=== PATIENT | male | born 1965 | race Caucasian/White ===

== ENCOUNTER 2023-07-31 08:54 | Observation (INO) | payer OTHER ==
--- NOTE | 2023-07-31 10:10 | ERPHSYRPT ---
- History of Present Illness Time Seen by Provider: 07/31/23 09:20 Source: patient Exam Limitations: no limitations Patient Subjective Stated Complaint: Pt began getting dizzy last night at home and he has an elevated blood pressure Triage Nursing Assessment: Pt brought to the ER by a coworker, hypertensive, denies pain, states that he began getting dizzy last night for no apparent reason and it continues on to this morning, pulses normal, skin n/w/d, no difficulty breathing, denies chest pain, doesn't appear to be in any distress Physician History: 58-year-old male presents to our ED for evaluation of dizziness. Dizziness started last night at approximately 9 PM. Patient states he felt as though the room was spinning. Patient did not seek medical attention felt it was just resolved. Patient awoke this morning with a same symptoms. He reported to work then was brought to our ED for evaluation. Patient does not see a family doctor regularly. Patient denies pain. No nausea no vomiting. Symptoms are mild to moderate in intensity. No specific worsening or improving factors. Patient voices no other complaints or concerns at this time. Portions of this note were created with voice recognition technology. There may be grammatical, spelling, punctuation or sound alike errors Timing/Duration: yesterday Severity: moderate Modifying Factors: Improves With: nothing Associated Symptoms: denies symptoms Allergies/Adverse Reactions: No Known Drug Allergies Allergy (Verified 07/31/23 09:14) Home Medications: No Reportable Medications [No Reported Medications] 07/31/23 [History] Hx Influenza Vaccination/Date Given: No Hx Pneumococcal Vaccination/Date Given: No Travel Risk - International Travel Have you traveled outside of the country in past 3 weeks: No - Coronavirus Screening Are you exhibiting any of the following symptoms?: No Close contact with a COVID-19 positive Pt in past 14-21 Days: No - Vaccine Status Have you recieved a Covid-19 vaccination: No - Review of Systems Constitutional: No Symptoms, No Fever, No Chills Eyes: No Symptoms Ears, Nose, & Throat: No Symptoms Respiratory: No Symptoms, No Cough, No Dyspnea Cardiac: No Symptoms, No Chest Pain, No Edema, No Syncope Abdominal/Gastrointestinal: No Symptoms, No Abdominal Pain, No Nausea, No Vomiting, No Diarrhea Genitourinary Symptoms: No Symptoms, No Dysuria Musculoskeletal: No Symptoms, No Back Pain, No Neck Pain Skin: No Symptoms, No Rash Neurological: No Symptoms, No Dizziness, No Focal Weakness, No Sensory Changes Psychological: No Symptoms Endocrine: No Symptoms Hematologic/Lymphatic: No Symptoms Immunological/Allergic: No Symptoms All Other Systems: Reviewed and Negative - Past Medical History Pertinent Past Medical History: Yes Neurological History: Seizures - Past Surgical History Past Surgical History: Yes Gastrointestinal: Hernia Repair Other Surgical History: tubes in ears - Social History Smoking Status: Never smoker Exposure to second hand smoke: No Drug Use: none Patient Lives Alone: No - Nursing Vital Signs Nursing Vital Signs: Initial Vital Signs Temperature 97.9 F 07/31/23 09:03 Pulse Rate 67 07/31/23 09:03 Respiratory Rate 16 07/31/23 09:03 Blood Pressure 187/99 07/31/23 09:03 O2 Sat by Pulse Oximetry 99 07/31/23 09:03 Pain Scale Pain Intensity 0 - Physical Exam General Appearance: no apparent distress, alert Eye Exam: PERRL/EOMI, eyes nml inspection Ears, Nose, Throat Exam: normal ENT inspection, TMs normal, pharynx normal, moist mucous membranes Neck Exam: normal inspection, non-tender, supple, full range of motion Respiratory Exam: normal breath sounds, lungs clear, airway intact, No respiratory distress Cardiovascular Exam: regular rate/rhythm, normal heart sounds, normal peripheral pulses Gastrointestinal/Abdomen Exam: soft, normal bowel sounds, No tenderness, No mass Back Exam: normal inspection, normal range of motion, No CVA tenderness, No vertebral tenderness Extremity Exam: normal inspection, normal range of motion, pelvis stable Neurologic Exam: alert, oriented x 3, cooperative, normal mood/affect, nml cerebellar function, nml station & gait, sensation nml, No motor deficits Skin Exam: normal color, warm, dry, No rash Lymphatic Exam: No adenopathy SpO2 Interpretation: normal SpO2: 99 O2 Delivery: Room Air - Course Nursing assessment & vital signs reviewed: Yes EKG Interpreted by Me: RATE (61), Sinus Rhythm, NORMAL AXIS, NORMAL INTERVALS - CT Exams Head CT Interpretation: Tele-radiologist Report (Partial opacification of right mastoid. Possibly inflammatory.) Ordered Tests: Active Orders 24 hr Category Date Time Status Quilt Sewer STAT Care 07/31/23 09:47 Active EKG-ER Only STAT Care 07/31/23 09:46 Active IV Insertion STAT Care 07/31/23 09:46 Active Pulse Oximetry (ED) STAT Care 07/31/23 09:46 Active HEAD WITHOUT CONTRAST [CT] Stat Exams 07/31/23 09:48 Completed ACETAMINOPHEN Stat Lab 07/31/23 10:16 Completed CBC W DIFF Stat Lab 07/31/23 09:46 Completed CMP Stat Lab 07/31/23 10:16 Completed ETHYL ALCOHOL Stat Lab 07/31/23 10:16 Completed SALICYLATE Stat Lab 07/31/23 10:16 Completed TROPONIN Q4H Lab 07/31/23 10:16 Completed TROPONIN Q4H Lab 07/31/23 14:25 Completed TROPONIN Q4H Lab 07/31/23 18:00 Ordered UA W/RFX UR CULTURE Stat Lab 07/31/23 11:31 Completed Urine Triage Profile Stat Lab 07/31/23 11:31 Completed Transfer Order Routine Transfer 07/31/23 Ordered Medication Summary Discontinued Medications Generic Name Dose Route Start Last Admin Trade Name Freq PRN Reason Stop Dose Admin Aspirin 324 mg 07/31/23 15:05 07/31/23 15:08 Aspirin 81 Mg Tab.Chew PO 07/31/23 15:06 324 mg STAT ONE Administration Aspirin Confirm 07/31/23 15:07 Aspirin 81 Mg Tab.Chew Administered 07/31/23 15:08 Dose 324 mg .ROUTE .STK-MED ONE Piperacillin Sod/Tazobactam 100 mls @ 200 mls/hr 07/31/23 11:44 07/31/23 11:58 Sod 3.375 gm/ Sodium Chloride IV 07/31/23 12:13 200 mls/hr STAT ONE Administration Sodium Chloride Confirm 07/31/23 11:52 Sodium Chloride 0.9% Administered 07/31/23 11:53 Dose 100 mls @ ud .ROUTE .STK-MED ONE Piperacillin Sod/Tazobactam Sod Confirm 07/31/23 11:49 Piperacillin/Tazobactam Sodium 3.375 Gm Vial Administered 07/31/23 11:50 Dose 3.375 gm IV .STK-MED ONE Lab/Rad Data: Laboratory Result Diagrams 07/31/23 09:46 07/31/23 10:16 Laboratory Results 07/31/23 07/31/23 07/31/23 Range/Units 14:25 11:31 11:31 WBC (4.0-10.5) x10^3/uL RBC (4.1-5.6) x10^6/uL Hgb (12.5-18.0) g/dL Hct (42-50) % MCV (78-100) fL MCH (26-32) pg MCHC (32-36) g/dL RDW (11.5-14.0) % Plt Count (150-450) x10^3/uL MPV (7.5-11.0) fL Gran % (36.0-66.0) % Immature Gran % (Auto) (0.00-0.4) % Nucleat RBC Rel Count (0.00-0.1) % Eos # (Auto) (0-0.5) x10^3/uL Immature Gran # (Auto) (0.00-0.03) x10^3u/L Absolute Lymphs (auto) (1.0-4.6) x10^3/uL Absolute Monos (auto) (0.0-1.3) x10^3/uL Absolute Nucleated RBC (0.00-0.01) x10^3u/L Lymphocytes % (24.0-44.0) % Monocytes % (0.0-12.0) % Eosinophils % (0.00-5.0) % Basophils % (0.0-0.4) % Absolute Granulocytes (1.4-6.9) x10^3/uL Basophils # (0-0.4) x10^3/uL Sodium (135-145) mmol/L Potassium (3.5-5.1) mmol/L Chloride (98-107) mmol/L Carbon Dioxide (22-30) mmol/L Anion Gap (5-15) MEQ/L BUN (9-20) mg/dL Creatinine (0.66-1.25) mg/dL Estimated GFR ML/MIN Glucose (74-106) mg/dL Calcium (8.4-10.2) mg/dL Total Bilirubin (0.2-1.3) mg/dL AST (17-59) U/L ALT (0-50) U/L Alkaline Phosphatase (38-126) U/L Troponin I < 0.012 (0.000-0.034) ng/mL Serum Total Protein (6.3-8.2) g/dL Albumin (3.5-5.0) g/dL Urine Color Yellow (Yellow) Urine Appearance Clear (Clear) Urine pH 7.0 (4.6-8.0) Ur Specific [place] 1.010 (1.005-1.030) Urine Protein Negative (Negative) Urine Glucose (UA) Negative (Negative) mg/dL Urine Ketones Negative (Negative) Urine Blood Negative (Negative) Urine Nitrite Negative (Negative) Urine Bilirubin Negative (Negative) Urine Urobilinogen 0.2 (0.2) mg/dL Ur Leukocyte Esterase Negative (Negative) U Hyaline Cast (Auto) NONE SEEN (0-2) /LPF Urine Microscopic RBC 0-2 (0-5) /HPF Urine Microscopic WBC 0-2 (0-5) /HPF Ur Epithelial Cells None Seen (None Seen) /HPF Urine Bacteria None Seen (None Seen) /HPF Urine Culture Reflexed NO (NO) Salicylates (2-20) mg/dL Urine Opiates Level NEGATIVE (NEGATIVE) Ur Methadone NEGATIVE (NEGATIVE) Acetaminophen (10-30) ug/ml Urine Barbiturates NEGATIVE (NEGATIVE) Ur Phencyclidine (PCP) NEGATIVE (NEGATIVE) Urine Amphetamine NEGATIVE (NEGATIVE) U Benzodiazepine Level NEGATIVE (NEGATIVE) Urine Cocaine NEGATIVE (NEGATIVE) Urine Marijuana (THC) NEGATIVE (NEGATIVE) Ethyl Alcohol (0-10) mg/dL 07/31/23 07/31/23 07/31/23 Range/Units 10:16 10:16 09:46 WBC 7.3 (4.0-10.5) x10^3/uL RBC 4.78 (4.1-5.6) x10^6/uL Hgb 15.4 (12.5-18.0) g/dL Hct 44.8 (42-50) % MCV 93.7 (78-100) fL MCH 32.2 H (26-32) pg MCHC 34.4 (32-36) g/dL RDW 11.5 (11.5-14.0) % Plt Count 180 (150-450) x10^3/uL MPV 9.3 (7.5-11.0) fL Gran % 78.0 H (36.0-66.0) % Immature Gran % (Auto) 0.1 (0.00-0.4) % Nucleat RBC Rel Count 0.0 (0.00-0.1) % Eos # (Auto) 0.03 (0-0.5) x10^3/uL Immature Gran # (Auto) 0.01 (0.00-0.03) x10^3u/L Absolute Lymphs (auto) 1.31 (1.0-4.6) x10^3/uL Absolute Monos (auto) 0.24 (0.0-1.3) x10^3/uL Absolute Nucleated RBC 0.00 (0.00-0.01) x10^3u/L Lymphocytes % 17.9 L (24.0-44.0) % Monocytes % 3.3 (0.0-12.0) % Eosinophils % 0.4 (0.00-5.0) % Basophils % 0.3 (0.0-0.4) % Absolute Granulocytes 5.69 (1.4-6.9) x10^3/uL Basophils # 0.02 (0-0.4) x10^3/uL Sodium 134 L (135-145) mmol/L Potassium 3.8 (3.5-5.1) mmol/L Chloride 103 (98-107) mmol/L Carbon Dioxide 22 (22-30) mmol/L Anion Gap 12.7 (5-15) MEQ/L BUN 24 H (9-20) mg/dL Creatinine 0.79 (0.66-1.25) mg/dL Estimated GFR 101.7 ML/MIN Glucose 107 H (74-106) mg/dL Calcium 9.1 (8.4-10.2) mg/dL Total Bilirubin 0.80 (0.2-1.3) mg/dL AST 28 (17-59) U/L ALT 17 (0-50) U/L Alkaline Phosphatase 63 (38-126) U/L Troponin I < 0.012 (0.000-0.034) ng/mL Serum Total Protein 7.3 (6.3-8.2) g/dL Albumin 4.2 (3.5-5.0) g/dL Urine Color (Yellow) Urine Appearance (Clear) Urine pH (4.6-8.0) Ur Specific [place] (1.005-1.030) Urine Protein (Negative) Urine Glucose (UA) (Negative) mg/dL Urine Ketones (Negative) Urine Blood (Negative) Urine Nitrite (Negative) Urine Bilirubin (Negative) Urine Urobilinogen (0.2) mg/dL Ur Leukocyte Esterase (Negative) U Hyaline Cast (Auto) (0-2) /LPF Urine Microscopic RBC (0-5) /HPF Urine Microscopic WBC (0-5) /HPF Ur Epithelial Cells (None Seen) /HPF Urine Bacteria (None Seen) /HPF Urine Culture Reflexed (NO) Salicylates < 1.0 L (2-20) mg/dL Urine Opiates Level (NEGATIVE) Ur Methadone (NEGATIVE) Acetaminophen < 10 L (10-30) ug/ml Urine Barbiturates (NEGATIVE) Ur Phencyclidine (PCP) (NEGATIVE) Urine Amphetamine (NEGATIVE) U Benzodiazepine Level (NEGATIVE) Urine Cocaine (NEGATIVE) Urine Marijuana (THC) (NEGATIVE) Ethyl Alcohol < 10 (0-10) mg/dL - Progress Progress: improved Progress Note: 58-year-old male presents to our ED with dizziness. Physical exam essentially nonremarkable. No focal or lateralizing symptoms. Laboratory workup shows no acute findings. CT head negative for acute intracranial pathology. However patient has poor follow-up. Blood pressure was somewhat elevated on arrival. Teleneurologist consulted. He feels patient requires further evaluation with an MRI. Plan of care discussed with patient. He agrees to admission to [facility] for further evaluation and treatment. Patient received aspirin and IV fluids. Management discussed with hospitalist Dr. Bernal at 3:15 PM who accepts admission to observation. Portions of this note were created with voice recognition technology. There may be grammatical, spelling, punctuation or sound alike errors Complexity problem addressed high, threat to bodily function. No critical care time Complex of data reviewed and analyzed is extensive. Test ordered test reviewed results analyzed and correlated clinically with history and physical examination. Management discussed with teleneurologist who advises hospitalization for MRI and further evaluation. Management also discussed with hospitalist who accepts admission to observation. I spoke to the hospitalist at 3:15 PM. Risk complication and a risk of morbidity/mortality of patient management is high. Patient requires hospitalization for further evaluation and treatment. Vital stable. Time spent admit patient is approximately 20 minutes. Plan of care established for shared decision making. No social determinants of health present impede follow-up. Portions of this note were created with voice recognition technology. There may be grammatical, spelling, punctuation or sound alike errors 07/31/23 15:33 Counseled pt/family regarding: lab results, diagnosis, rad results - Departure Departure Disposition: Observation Clinical Impression: Mastoiditis, Dizziness Condition: Stable Critical Care Time: No Referrals: DOCTOR,NO FAMILY [Primary Care Provider] - Follow up/PCP as directed
[2023-07-31 10:12] LABS: Absolute Neutrophil Ct (ANC) 5.69 x10^3/uL (1.4-6.9); BASOPHIL % 0.3 % (0.0-0.4); Basophil (Absolute #) 0.02 x10^3/uL (0-0.4); Eosinophil % 0.4 % (0.00-5.0); Eosinophil (Absolute #) 0.03 x10^3/uL (0-0.5); Hematocrit 44.8 % (42-50); Hemoglobin 15.4 g/dL (12.5-18.0); IMMATURE GRAN # 0.01 x10^3u/L (0.00-0.03); IMMATURE GRAN % 0.1 % (0.00-0.4); Lymphocyte (Absolute #) 1.31 x10^3/uL (1.0-4.6); Lymphocytes % 17.9 % (24.0-44.0); Mean Cell Volume 93.7 fL (78-100); Mean Corpuscular Hemoglobin 32.2 pg (26-32); Mean Corpuscular Hgb Concent. 34.4 g/dL (32-36); Mean Platelet Volume 9.3 fL (7.5-11.0); Monocyte (Absolute #) 0.24 x10^3/uL (0.0-1.3); Monocytes % 3.3 % (0.0-12.0); Platelet Count 180 x10^3/uL (150-450); Red Blood Count 4.78 x10^6/uL (4.1-5.6); Red Cell Distribution Width 11.5 % (11.5-14.0); White Blood Count 7.3 x10^3/uL (4.0-10.5)
--- NOTE | 2023-07-31 10:25 | XRAY ---
Indication: Dizziness. Stroke. Multiple contiguous axial images obtained through the head without contrast. Comparison: None Normal appearing brain parenchyma, ventricles, and bony calvarium. Partial opacification right mastoid air cells possibly inflammatory. Remaining visualized paranasal sinuses and mastoid air cells are clear. Impression: Partial opacification right mastoid air cells possibly inflammatory. Remaining CT head without contrast exam is normal.
[2023-07-31 10:31] LABS: ACETAMINOPHEN < 10 ug/ml (10-30); ALBUMIN 4.2 g/dL (3.5-5.0); ALKALINE PHOSPHATASE 63 U/L (38-126); ANION GAP 12.7 MEQ/L (5-15); BLOOD UREA NITROGEN 24 mg/dL (9-20); CHLORIDE 103 mmol/L (98-107); Calcium 9.1 mg/dL (8.4-10.2); Carbon Dioxide 22 mmol/L (22-30); Creatinine 1 0.79 mg/dL (0.66-1.25); EST GLOMERULAR FILTRATION RATE 101.7 ML/MIN; ETHYL ALCOHOL < 10 mg/dL (0-10); Glucose 107 mg/dL (74-106); Potassium 3.8 mmol/L (3.5-5.1); SALICYLATE < 1.0 mg/dL (2-20); SGOT/AST 28 U/L (17-59); SGPT/ALT 17 U/L (0-50); SODIUM 134 mmol/L (135-145); Total Protein 7.3 g/dL (6.3-8.2)
[2023-07-31] MEDS ORDERED: PIPERACILLIN/TAZOBACTAM IV ONE (11:49)
[2023-07-31] MEDS ORDERED: Sodium Chloride 0.9% 100 ML ONE (11:52)
[2023-07-31] MEDS: PIPERACILLIN/TAZOBACTAM 3.375 GM in Sodium Chloride 100ML MINI-BAG PLUS 100 ML IV ONE (11:58)
[2023-07-31 12:42] LABS: Appearance Clear (Clear); Bacteria None Seen /HPF (None Seen); Bilirubin Negative (Negative); Blood Negative (Negative); Epithelial Cells None Seen /HPF (None Seen); Glucose, Urine Negative (Negative); Hyaline Casts NONE SEEN /LPF (0-2); Ketones Negative (Negative); Leukocyte Esterase Negative (Negative); Nitrite Negative (Negative); Protein,Urine Dip Negative (Negative); RBC 0-2 /HPF (0-5); Urobilinogen 0.2 mg/dL (0.2); WBC 0-2 /HPF (0-5)
[2023-07-31 12:43] LABS: ADD URINE CULTURE? NO (NO)
[2023-07-31 12:54] LABS: Amphetamine,Urine NEGATIVE (NEGATIVE); Barbiturate,Urine NEGATIVE (NEGATIVE); Benzodiazepine,Urine NEGATIVE (NEGATIVE); Cocaine,Urine NEGATIVE (NEGATIVE); Methadone,Urine NEGATIVE (NEGATIVE); Opiate,Urine NEGATIVE (NEGATIVE); PCP,Urine NEGATIVE (NEGATIVE); THC,Urine NEGATIVE (NEGATIVE)
[2023-07-31] MEDS ORDERED: BABY ASPIRIN 81 MG CHEW ONE (15:07)
[2023-07-31] MEDS: BABY ASPIRIN 81 MG CHEW PO ONE (15:08)
--- NOTE | 2023-07-31 17:23 | PCM.HP ---
<ELZA TABOR - Last Filed: 07/31/23 17:06> History of Present Illness - Chief Complaint Chief Complaint: Dizziness Date: 07/31/23 History of Present Illness: is a 58 year old male with a pmhx of seizures (has been off medication for 4 years) who presented to ED on 07/31/23 with complaints of a one day history of dizziness. Patient reports that he has a "room spinning sensation" which is worse with standing and relieved with laying down. SSymptoms started last evening at bedtime approximately 9 p.m. , resolved, and started again this morning when he woke up. He also has complaints of chronic left neck pain. Denies fever,cough, sob, cp, abdominal pain, GUILLERMO, dizziness, N/V/D. Upon arrival to ED, patient was hypertensive with BP at 187/99, otherwise vitals stable. CT head demonstrates partial opacification right mastoid air cells possibly. Lab findings with mild hyponatremia. inflammatory. Neurology consulted with recommendations for an MRI/carotid doppler. Patient received ASA, zosyn, and IVF. - Review of Systems Constitutional: No Symptoms Eyes: No Symptoms Ears, Nose, & Throat: No Symptoms Respiratory: No Symptoms Cardiac: No Symptoms Abdominal/Gastrointestinal: No Symptoms Genitourinary Symptoms: No Symptoms Musculoskeletal: No Symptoms Skin: No Symptoms Neurological: Dizziness Psychological: No Symptoms Endocrine: No Symptoms Hematologic/Lymphatic: No Symptoms Immunological/Allergic: No Symptoms Medications & Allergies Home Medications: Home Medication List Fexofenadine HCl [Amee Allergy] 60 mg PO DAILY 07/31/23 [History Confirmed 07/31/23] Loratadine 10 mg [Claritin 10 mg] 10 mg PO HS 07/31/23 [History Confirmed 07/31/23] Allergies/Adverse Reactions: Allergies Allergy/AdvReac Type Severity Reaction Status Date / Time No Known Drug Allergies Allergy Verified 07/31/23 09:14 - Past Medical History Past Medical History: Yes Neurological History: Seizures - Past Surgical History Past Surgical History: Yes GI Surgical History: Hernia Repair Other Surgical History: tubes in ears - Social History Smoking Status: Never smoker Exposure to second hand smoke: No Alcohol: None Drug Use: none - Physical Exam Vital Signs: Vital Signs - 24 hr Temp Pulse Resp BP BP Pulse Ox 07/31/23 16:49 97.2 F 64 16 163/82 96 07/31/23 15:38 99 07/31/23 15:10 74 15 07/31/23 15:02 75 15 07/31/23 14:30 77 23 152/96 07/31/23 14:00 53 L 12 158/77 97 07/31/23 13:30 56 L 14 176/97 97 07/31/23 13:05 60 12 157/107 98 07/31/23 13:04 67 15 91 L 07/31/23 13:03 53 L 18 94 L 07/31/23 12:30 51 L 14 180/98 96 07/31/23 12:00 64 18 175/96 07/31/23 11:36 58 L 17 179/95 95 07/31/23 11:35 99 07/31/23 09:30 62 10 L 155/95 98 07/31/23 09:06 60 13 187/99 95 07/31/23 09:03 97.9 F 67 16 187/99 99 General Appearance: no apparent distress Neurologic Exam: alert, oriented x 3, cooperative Eye Exam: PERRL/EOMI Ears, Nose, Throat Exam: normal ENT inspection Neck Exam: normal inspection Respiratory Exam: normal breath sounds, lungs clear Cardiovascular Exam: regular rate/rhythm, normal heart sounds Rectal Exam: deferred Back Exam: normal inspection Extremity Exam: normal inspection Skin Exam: normal color Results - Labs Lab/Micro Results: Lab Results-Last 24 Hours 07/31/23 07/31/23 07/31/23 Range/Units 09:46 10:16 10:16 WBC 7.3 (4.0-10.5) x10^3/uL RBC 4.78 (4.1-5.6) x10^6/uL Hgb 15.4 (12.5-18.0) g/dL Hct 44.8 (42-50) % MCV 93.7 (78-100) fL MCH 32.2 H (26-32) pg MCHC 34.4 (32-36) g/dL RDW 11.5 (11.5-14.0) % Plt Count 180 (150-450) x10^3/uL MPV 9.3 (7.5-11.0) fL Gran % 78.0 H (36.0-66.0) % Immature Gran % (Auto) 0.1 (0.00-0.4) % Nucleat RBC Rel Count 0.0 (0.00-0.1) % Eos # (Auto) 0.03 (0-0.5) x10^3/uL Immature Gran # (Auto) 0.01 (0.00-0.03) x10^3u/L Absolute Lymphs (auto) 1.31 (1.0-4.6) x10^3/uL Absolute Monos (auto) 0.24 (0.0-1.3) x10^3/uL Absolute Nucleated RBC 0.00 (0.00-0.01) x10^3u/L Lymphocytes % 17.9 L (24.0-44.0) % Monocytes % 3.3 (0.0-12.0) % Eosinophils % 0.4 (0.00-5.0) % Basophils % 0.3 (0.0-0.4) % Absolute Granulocytes 5.69 (1.4-6.9) x10^3/uL Basophils # 0.02 (0-0.4) x10^3/uL Sodium 134 L (135-145) mmol/L Potassium 3.8 (3.5-5.1) mmol/L Chloride 103 (98-107) mmol/L Carbon Dioxide 22 (22-30) mmol/L Anion Gap 12.7 (5-15) MEQ/L BUN 24 H (9-20) mg/dL Creatinine 0.79 (0.66-1.25) mg/dL Estimated GFR 101.7 ML/MIN Glucose 107 H (74-106) mg/dL Calcium 9.1 (8.4-10.2) mg/dL Total Bilirubin 0.80 (0.2-1.3) mg/dL AST 28 (17-59) U/L ALT 17 (0-50) U/L Alkaline Phosphatase 63 (38-126) U/L Troponin I < 0.012 (0.000-0.034) ng/mL Serum Total Protein 7.3 (6.3-8.2) g/dL Albumin 4.2 (3.5-5.0) g/dL Urine Color (Yellow) Urine Appearance (Clear) Urine pH (4.6-8.0) Ur Specific Bozman (1.005-1.030) Urine Protein (Negative) Urine Glucose (UA) (Negative) mg/dL Urine Ketones (Negative) Urine Blood (Negative) Urine Nitrite (Negative) Urine Bilirubin (Negative) Urine Urobilinogen (0.2) mg/dL Ur Leukocyte Esterase (Negative) U Hyaline Cast (Auto) (0-2) /LPF Urine Microscopic RBC (0-5) /HPF Urine Microscopic WBC (0-5) /HPF Ur Epithelial Cells (None Seen) /HPF Urine Bacteria (None Seen) /HPF Urine Culture Reflexed (NO) Salicylates < 1.0 L (2-20) mg/dL Urine Opiates Level (NEGATIVE) Ur Methadone (NEGATIVE) Acetaminophen < 10 L (10-30) ug/ml Urine Barbiturates (NEGATIVE) Ur Phencyclidine (PCP) (NEGATIVE) Urine Amphetamine (NEGATIVE) U Benzodiazepine Level (NEGATIVE) Urine Cocaine (NEGATIVE) Urine Marijuana (THC) (NEGATIVE) Ethyl Alcohol < 10 (0-10) mg/dL 07/31/23 07/31/23 07/31/23 Range/Units 11:31 11:31 14:25 WBC (4.0-10.5) x10^3/uL RBC (4.1-5.6) x10^6/uL Hgb (12.5-18.0) g/dL Hct (42-50) % MCV (78-100) fL MCH (26-32) pg MCHC (32-36) g/dL RDW (11.5-14.0) % Plt Count (150-450) x10^3/uL MPV (7.5-11.0) fL Gran % (36.0-66.0) % Immature Gran % (Auto) (0.00-0.4) % Nucleat RBC Rel Count (0.00-0.1) % Eos # (Auto) (0-0.5) x10^3/uL Immature Gran # (Auto) (0.00-0.03) x10^3u/L Absolute Lymphs (auto) (1.0-4.6) x10^3/uL Absolute Monos (auto) (0.0-1.3) x10^3/uL Absolute Nucleated RBC (0.00-0.01) x10^3u/L Lymphocytes % (24.0-44.0) % Monocytes % (0.0-12.0) % Eosinophils % (0.00-5.0) % Basophils % (0.0-0.4) % Absolute Granulocytes (1.4-6.9) x10^3/uL Basophils # (0-0.4) x10^3/uL Sodium (135-145) mmol/L Potassium (3.5-5.1) mmol/L Chloride (98-107) mmol/L Carbon Dioxide (22-30) mmol/L Anion Gap (5-15) MEQ/L BUN (9-20) mg/dL Creatinine (0.66-1.25) mg/dL Estimated GFR ML/MIN Glucose (74-106) mg/dL Calcium (8.4-10.2) mg/dL Total Bilirubin (0.2-1.3) mg/dL AST (17-59) U/L ALT (0-50) U/L Alkaline Phosphatase (38-126) U/L Troponin I < 0.012 (0.000-0.034) ng/mL Serum Total Protein (6.3-8.2) g/dL Albumin (3.5-5.0) g/dL Urine Color Yellow (Yellow) Urine Appearance Clear (Clear) Urine pH 7.0 (4.6-8.0) Ur Specific Bozman 1.010 (1.005-1.030) Urine Protein Negative (Negative) Urine Glucose (UA) Negative (Negative) mg/dL Urine Ketones Negative (Negative) Urine Blood Negative (Negative) Urine Nitrite Negative (Negative) Urine Bilirubin Negative (Negative) Urine Urobilinogen 0.2 (0.2) mg/dL Ur Leukocyte Esterase Negative (Negative) U Hyaline Cast (Auto) NONE SEEN (0-2) /LPF Urine Microscopic RBC 0-2 (0-5) /HPF Urine Microscopic WBC 0-2 (0-5) /HPF Ur Epithelial Cells None Seen (None Seen) /HPF Urine Bacteria None Seen (None Seen) /HPF Urine Culture Reflexed NO (NO) Salicylates (2-20) mg/dL Urine Opiates Level NEGATIVE (NEGATIVE) Ur Methadone NEGATIVE (NEGATIVE) Acetaminophen (10-30) ug/ml Urine Barbiturates NEGATIVE (NEGATIVE) Ur Phencyclidine (PCP) NEGATIVE (NEGATIVE) Urine Amphetamine NEGATIVE (NEGATIVE) U Benzodiazepine Level NEGATIVE (NEGATIVE) Urine Cocaine NEGATIVE (NEGATIVE) Urine Marijuana (THC) NEGATIVE (NEGATIVE) Ethyl Alcohol (0-10) mg/dL - Radiology Impressions Radiology Exams & Impressions: Radiology Procedures Category Date Time Status HEAD WITHOUT CONTRAST [CT] Stat Exams 07/31/23 09:48 Completed Assessment/Plan (1) Mastoiditis Current Visit: Yes Status: Acute Assessment & Plan: -CT showing Partial opacification right mastoid air cells possibly inflammatory. -Zosyn started in ED, will continue -MRI brain pending Code(s): H70.90 - UNSPECIFIED MASTOIDITIS, UNSPECIFIED EAR (2) History of seizure Current Visit: Yes Status: Acute Assessment & Plan: -Noted, No home meds for 4 years, does not follow with neurology OP Code(s): Z87.898 - PERSONAL HISTORY OF OTHER SPECIFIED CONDITIONS (3) Hypertension Current Visit: Yes Status: Acute Assessment & Plan: -permissive HTN for now, pending MRI results -Continue to monitor Code(s): I10 - ESSENTIAL (PRIMARY) HYPERTENSION (4) Dizziness Current Visit: Yes Status: Acute Assessment & Plan: -Neurology consulted, recs for MRI/carotid -No focal or lateralizing symptoms -orthostatic vitals -PT/OT -Tele -consider echo -gentle hydration -UA unremarkable -TSH, b12/fol -Medications reviewed, no home meds listed Code(s): R42 - DIZZINESS AND GIDDINESS <KARLOS FISCHER - Last Filed: 07/31/23 22:41> History of Present Illness - Chief Complaint History of Present Illness: is a 58 year old male. - Physical Exam Vital Signs: Vital Signs - 24 hr Temp Pulse Resp BP BP Pulse Ox 07/31/23 19:49 97.9 F 68 20 127/85 98 07/31/23 17:11 97.2 F 64 18 163/82 96 07/31/23 16:49 97.2 F 64 16 163/82 96 07/31/23 15:38 99 07/31/23 15:10 74 15 07/31/23 15:02 75 15 07/31/23 14:30 77 23 152/96 07/31/23 14:00 53 L 12 158/77 97 07/31/23 13:30 56 L 14 176/97 97 07/31/23 13:05 60 12 157/107 98 07/31/23 13:04 67 15 91 L 07/31/23 13:03 53 L 18 94 L 07/31/23 12:30 51 L 14 180/98 96 07/31/23 12:00 64 18 175/96 07/31/23 11:36 58 L 17 179/95 95 07/31/23 11:35 99 07/31/23 09:30 62 10 L 155/95 98 07/31/23 09:06 60 13 187/99 95 07/31/23 09:03 97.9 F 67 16 187/99 99 Results - Labs Lab/Micro Results: Lab Results-Last 24 Hours 07/31/23 07/31/23 07/31/23 Range/Units 09:46 10:16 10:16 WBC 7.3 (4.0-10.5) x10^3/uL RBC 4.78 (4.1-5.6) x10^6/uL Hgb 15.4 (12.5-18.0) g/dL Hct 44.8 (42-50) % MCV 93.7 (78-100) fL MCH 32.2 H (26-32) pg MCHC 34.4 (32-36) g/dL RDW 11.5 (11.5-14.0) % Plt Count 180 (150-450) x10^3/uL MPV 9.3 (7.5-11.0) fL Gran % 78.0 H (36.0-66.0) % Immature Gran % (Auto) 0.1 (0.00-0.4) % Nucleat RBC Rel Count 0.0 (0.00-0.1) % Eos # (Auto) 0.03 (0-0.5) x10^3/uL Immature Gran # (Auto) 0.01 (0.00-0.03) x10^3u/L Absolute Lymphs (auto) 1.31 (1.0-4.6) x10^3/uL Absolute Monos (auto) 0.24 (0.0-1.3) x10^3/uL Absolute Nucleated RBC 0.00 (0.00-0.01) x10^3u/L Lymphocytes % 17.9 L (24.0-44.0) % Monocytes % 3.3 (0.0-12.0) % Eosinophils % 0.4 (0.00-5.0) % Basophils % 0.3 (0.0-0.4) % Absolute Granulocytes 5.69 (1.4-6.9) x10^3/uL Basophils # 0.02 (0-0.4) x10^3/uL Sodium 134 L (135-145) mmol/L Potassium 3.8 (3.5-5.1) mmol/L Chloride 103 (98-107) mmol/L Carbon Dioxide 22 (22-30) mmol/L Anion Gap 12.7 (5-15) MEQ/L BUN 24 H (9-20) mg/dL Creatinine 0.79 (0.66-1.25) mg/dL Estimated GFR 101.7 ML/MIN Glucose 107 H (74-106) mg/dL Calcium 9.1 (8.4-10.2) mg/dL Magnesium (1.6-2.3) mg/dL Total Bilirubin 0.80 (0.2-1.3) mg/dL AST 28 (17-59) U/L ALT 17 (0-50) U/L Alkaline Phosphatase 63 (38-126) U/L Troponin I < 0.012 (0.000-0.034) ng/mL Serum Total Protein 7.3 (6.3-8.2) g/dL Albumin 4.2 (3.5-5.0) g/dL TSH 3rd Generation (0.47-4.68) mIU/L Urine Color (Yellow) Urine Appearance (Clear) Urine pH (4.6-8.0) Ur Specific Bozman (1.005-1.030) Urine Protein (Negative) Urine Glucose (UA) (Negative) mg/dL Urine Ketones (Negative) Urine Blood (Negative) Urine Nitrite (Negative) Urine Bilirubin (Negative) Urine Urobilinogen (0.2) mg/dL Ur Leukocyte Esterase (Negative) U Hyaline Cast (Auto) (0-2) /LPF Urine Microscopic RBC (0-5) /HPF Urine Microscopic WBC (0-5) /HPF Ur Epithelial Cells (None Seen) /HPF Urine Bacteria (None Seen) /HPF Urine Culture Reflexed (NO) Salicylates < 1.0 L (2-20) mg/dL Urine Opiates Level (NEGATIVE) Ur Methadone (NEGATIVE) Acetaminophen < 10 L (10-30) ug/ml Urine Barbiturates (NEGATIVE) Ur Phencyclidine (PCP) (NEGATIVE) Urine Amphetamine (NEGATIVE) U Benzodiazepine Level (NEGATIVE) Urine Cocaine (NEGATIVE) Urine Marijuana (THC) (NEGATIVE) Ethyl Alcohol < 10 (0-10) mg/dL 07/31/23 07/31/23 07/31/23 Range/Units 11:31 11:31 14:25 WBC (4.0-10.5) x10^3/uL RBC (4.1-5.6) x10^6/uL Hgb (12.5-18.0) g/dL Hct (42-50) % MCV (78-100) fL MCH (26-32) pg MCHC (32-36) g/dL RDW (11.5-14.0) % Plt Count (150-450) x10^3/uL MPV (7.5-11.0) fL Gran % (36.0-66.0) % Immature Gran % (Auto) (0.00-0.4) % Nucleat RBC Rel Count (0.00-0.1) % Eos # (Auto) (0-0.5) x10^3/uL Immature Gran # (Auto) (0.00-0.03) x10^3u/L Absolute Lymphs (auto) (1.0-4.6) x10^3/uL Absolute Monos (auto) (0.0-1.3) x10^3/uL Absolute Nucleated RBC (0.00-0.01) x10^3u/L Lymphocytes % (24.0-44.0) % Monocytes % (0.0-12.0) % Eosinophils % (0.00-5.0) % Basophils % (0.0-0.4) % Absolute Granulocytes (1.4-6.9) x10^3/uL Basophils # (0-0.4) x10^3/uL Sodium (135-145) mmol/L Potassium (3.5-5.1) mmol/L Chloride (98-107) mmol/L Carbon Dioxide (22-30) mmol/L Anion Gap (5-15) MEQ/L BUN (9-20) mg/dL Creatinine (0.66-1.25) mg/dL Estimated GFR ML/MIN Glucose (74-106) mg/dL Calcium (8.4-10.2) mg/dL Magnesium (1.6-2.3) mg/dL Total Bilirubin (0.2-1.3) mg/dL AST (17-59) U/L ALT (0-50) U/L Alkaline Phosphatase (38-126) U/L Troponin I < 0.012 (0.000-0.034) ng/mL Serum Total Protein (6.3-8.2) g/dL Albumin (3.5-5.0) g/dL TSH 3rd Generation (0.47-4.68) mIU/L Urine Color Yellow (Yellow) Urine Appearance Clear (Clear) Urine pH 7.0 (4.6-8.0) Ur Specific Bozman 1.010 (1.005-1.030) Urine Protein Negative (Negative) Urine Glucose (UA) Negative (Negative) mg/dL Urine Ketones Negative (Negative) Urine Blood Negative (Negative) Urine Nitrite Negative (Negative) Urine Bilirubin Negative (Negative) Urine Urobilinogen 0.2 (0.2) mg/dL Ur Leukocyte Esterase Negative (Negative) U Hyaline Cast (Auto) NONE SEEN (0-2) /LPF Urine Microscopic RBC 0-2 (0-5) /HPF Urine Microscopic WBC 0-2 (0-5) /HPF Ur Epithelial Cells None Seen (None Seen) /HPF Urine Bacteria None Seen (None Seen) /HPF Urine Culture Reflexed NO (NO) Salicylates (2-20) mg/dL Urine Opiates Level NEGATIVE (NEGATIVE) Ur Methadone NEGATIVE (NEGATIVE) Acetaminophen (10-30) ug/ml Urine Barbiturates NEGATIVE (NEGATIVE) Ur Phencyclidine (PCP) NEGATIVE (NEGATIVE) Urine Amphetamine NEGATIVE (NEGATIVE) U Benzodiazepine Level NEGATIVE (NEGATIVE) Urine Cocaine NEGATIVE (NEGATIVE) Urine Marijuana (THC) NEGATIVE (NEGATIVE) Ethyl Alcohol (0-10) mg/dL 07/31/23 07/31/23 Range/Units 18:10 18:30 WBC (4.0-10.5) x10^3/uL RBC (4.1-5.6) x10^6/uL Hgb (12.5-18.0) g/dL Hct (42-50) % MCV (78-100) fL MCH (26-32) pg MCHC (32-36) g/dL RDW (11.5-14.0) % Plt Count (150-450) x10^3/uL MPV (7.5-11.0) fL Gran % (36.0-66.0) % Immature Gran % (Auto) (0.00-0.4) % Nucleat RBC Rel Count (0.00-0.1) % Eos # (Auto) (0-0.5) x10^3/uL Immature Gran # (Auto) (0.00-0.03) x10^3u/L Absolute Lymphs (auto) (1.0-4.6) x10^3/uL Absolute Monos (auto) (0.0-1.3) x10^3/uL Absolute Nucleated RBC (0.00-0.01) x10^3u/L Lymphocytes % (24.0-44.0) % Monocytes % (0.0-12.0) % Eosinophils % (0.00-5.0) % Basophils % (0.0-0.4) % Absolute Granulocytes (1.4-6.9) x10^3/uL Basophils # (0-0.4) x10^3/uL Sodium (135-145) mmol/L Potassium (3.5-5.1) mmol/L Chloride (98-107) mmol/L Carbon Dioxide (22-30) mmol/L Anion Gap (5-15) MEQ/L BUN (9-20) mg/dL Creatinine (0.66-1.25) mg/dL Estimated GFR ML/MIN Glucose (74-106) mg/dL Calcium (8.4-10.2) mg/dL Magnesium 1.9 (1.6-2.3) mg/dL Total Bilirubin (0.2-1.3) mg/dL AST (17-59) U/L ALT (0-50) U/L Alkaline Phosphatase (38-126) U/L Troponin I < 0.012 (0.000-0.034) ng/mL Serum Total Protein (6.3-8.2) g/dL Albumin (3.5-5.0) g/dL TSH 3rd Generation 1.190 (0.47-4.68) mIU/L Urine Color (Yellow) Urine Appearance (Clear) Urine pH (4.6-8.0) Ur Specific Bozman (1.005-1.030) Urine Protein (Negative) Urine Glucose (UA) (Negative) mg/dL Urine Ketones (Negative) Urine Blood (Negative) Urine Nitrite (Negative) Urine Bilirubin (Negative) Urine Urobilinogen (0.2) mg/dL Ur Leukocyte Esterase (Negative) U Hyaline Cast (Auto) (0-2) /LPF Urine Microscopic RBC (0-5) /HPF Urine Microscopic WBC (0-5) /HPF Ur Epithelial Cells (None Seen) /HPF Urine Bacteria (None Seen) /HPF Urine Culture Reflexed (NO) Salicylates (2-20) mg/dL Urine Opiates Level (NEGATIVE) Ur Methadone (NEGATIVE) Acetaminophen (10-30) ug/ml Urine Barbiturates (NEGATIVE) Ur Phencyclidine (PCP) (NEGATIVE) Urine Amphetamine (NEGATIVE) U Benzodiazepine Level (NEGATIVE) Urine Cocaine (NEGATIVE) Urine Marijuana (THC) (NEGATIVE) Ethyl Alcohol (0-10) mg/dL - Radiology Impressions Radiology Exams & Impressions: Radiology Procedures Category Date Time Status CAROTID BILATERAL [US] Routine Exams 08/01/23 08:00 Ordered HEAD WITHOUT CONTRAST [CT] Stat Exams 07/31/23 09:48 Completed MRI BRAIN W/O CONTRAST [MRI] Routine Exams 08/01/23 08:00 Ordered ANN Encounter - ANN Encounter Attestation ANN Encounter Attestation: "MyriameenMERLE Kebede andhavediscussed pertinent aspects of their care with Elza Clay agree with the history, physical exam (any modifications based on my personal exam will be noted below), assessment, and plan as outlined in original note. Please see immediately below for my summary of findings and additional assessment and plan along with any meaningful corrections/explanations to the Subjective/Objective portions of the ANN note will be noted." My portion of the encounter took place via telemedicine. -Patient reports ongoing dizziness at rest. MRI pending to rule out CVA. If negative, symptoms could be secondary to mastoiditis seen on CT (on antibiotics).
[2023-07-31] MEDS ORDERED: TYLENOL 325 MG PO PRN (17:30)
[2023-07-31] MEDS ORDERED: Zofran 4 MG/2 ML VIAL IV PRN (17:30)
[2023-07-31] MEDS: PIPERACILLIN/TAZOBACTAM 3.375 GM in Sodium Chloride 100ML MINI-BAG PLUS 100 ML IV SCH (18:13)
[2023-07-31] MEDS: Sodium Chloride 0.9% 1000 ML 1,000 ML IV SCH (18:13)
[2023-07-31 19:22] LABS: MAGNESIUM 1.9 mg/dL (1.6-2.3); TSH, 3RD Generation 1.19 mIU/L (0.47-4.68)
[2023-08-01 04:50] LABS: Absolute Neutrophil Ct (ANC) 3.67 x10^3/uL (1.4-6.9); BASOPHIL % 0.7 % (0.0-0.4); Basophil (Absolute #) 0.04 x10^3/uL (0-0.4); Eosinophil % 2.8 % (0.00-5.0); Eosinophil (Absolute #) 0.17 x10^3/uL (0-0.5); Hemoglobin 14.8 g/dL (12.5-18.0); IMMATURE GRAN # 0.02 x10^3u/L (0.00-0.03); IMMATURE GRAN % 0.3 % (0.00-0.4); Lymphocytes % 29.8 % (24.0-44.0); Mean Corpuscular Hgb Concent. 33.6 g/dL (32-36); Mean Platelet Volume 9.7 fL (7.5-11.0); Monocyte (Absolute #) 0.35 x10^3/uL (0.0-1.3); Monocytes % 5.8 % (0.0-12.0); Neutrophil % 60.6 % (36.0-66.0); Platelet Count 184 x10^3/uL (150-450); Red Blood Count 4.63 x10^6/uL (4.1-5.6); Red Cell Distribution Width 11.9 % (11.5-14.0); White Blood Count 6.1 x10^3/uL (4.0-10.5)
[2023-08-01 05:26] LABS: ALBUMIN 3.6 g/dL (3.5-5.0); BILIRUBIN,TOTAL 0.4 mg/dL (0.2-1.3); Calcium 8.5 mg/dL (8.4-10.2); Creatinine 1 0.97 mg/dL (0.66-1.25); EST GLOMERULAR FILTRATION RATE 89.4 ML/MIN; Potassium 3.9 mmol/L (3.5-5.1); Total Protein 6.3 g/dL (6.3-8.2)
[2023-08-01 06:55] VITALS: RESP 16
[2023-08-01] MEDS: CLARITIN 10 MG PO SCH (10:57)
[2023-08-01 11:09] VITALS: BP 165/87; PULSE 55; TEMP 97.7; O2SAT 99
--- NOTE | 2023-08-01 11:45 | XRAY ---
Indication: Dizziness. Normal CT head without contrast exam. Two-dimensional sonogram and color Doppler imaging carotid arteries of the neck performed. Comparison: None Examination right carotid circumflex lesion demonstrates punctate arteriosclerotic plaquing mid common carotid, carotid bulb, and origin internal carotid artery. Remaining the external carotid artery widely patent. PSV CCA is 80 cm/s. PSV ICA is 75 cm/s. ICA/CCA ratio is 0.9. Normal antegrade vertebral artery flow. Examination left carotid circulation demonstrates mild/moderate heterogeneous plaquing at the level of the bulb extending into origin of the internal carotid and external carotid arteries. Remaining common carotid artery widely patent. PSV CCA is 80 cm/s. PSV ICA is 146 cm/s. ICA/CCA ratio is 1.8. Normal antegrade vertebral artery flow. Impression: Scattered arteriosclerotic plaquing, left greater than right as detailed. Velocity measurements and ratios favor 50-69% stenosis on the left. No hemodynamically significant flow-limiting stenosis on the right.
--- NOTE | 2023-08-01 13:57 | XRAY ---
Indication: Dizziness. Normal CT head without contrast exam. Sagittal, coronal, and axial MRI brain performed without contrast using T1, T2, FLAIR, diffusion, and ADC sequences. Comparison: None Ventriculosulcal pattern appears symmetric. No acute intracranial hemorrhage, abnormal extra-axial fluid collection, or mass effect. Diffusion images are negative for restricted signal. Fourth ventricle is midline without hydrocephalus. 7/8 cranial nerve complex bilaterally symmetric. Normal appearing craniocervical junction and sella turcica. Visualized paranasal sinuses are clear. Fluid signal right mastoid air cells. Impression: 1. Fluid signal right mastoid air cells possibly inflammatory. Finding was reported on CT head. 2. Remaining MRI brain without contrast exam is normal.
--- NOTE | 2023-08-01 14:13 | PCM.DS ---
Discharge Summary Date of Admission: 07/31/23 16:28 Date of Discharge: 08/01/23 Admitting Physician: KARLOS FISCHER MD Primary Care Provider: NO FAMILY DOCTOR Allergies Allergies No Known Drug Allergies Allergy (Verified 07/31/23 09:14) Hospital Summary - Hospital Course Hospital Course: is a 58 year old male with a pmhx of seizures (has been off medication for 4 years) who presented to ED on 07/31/23 with complaints of a one day history of dizziness. Patient reports that he has a "room spinning sensation" which is worse with standing and relieved with laying down. Symptoms started last evening at bedtime approximately 9 p.m. , resolved, and started again this morning when he woke up. He also has complaints of chronic left neck pain. Upon arrival to ED, patient was hypertensive with BP at 187/99, otherwise vitals stable. CT head demonstrates partial opacification right mastoid air cells possibly inflammatory. Neurology consulted in with recommendations for an MRI/carotid doppler. Patient received ASA, zosyn, and IVF. MRI demonstrating Fluid signal right mastoid air cells possibly inflammatory as shown on CT head otherwise unremarkable. Dizziness has improved, patient requesting discharge. Will send home on Augmentin with advisement for follow up with pcp. Discharge Note New Diagnosis: Mastoiditis New Medications: Augmentin Follow Up: PCP Latest Assessment & Plan (1) Mastoiditis Current Visit: Yes Status: Acute Assessment & Plan: -CT showing Partial opacification right mastoid air cells possibly inflammatory. -Zosyn started in ED, will continue -MRI brain pending Code(s): H70.90 - UNSPECIFIED MASTOIDITIS, UNSPECIFIED EAR (2) History of seizure Current Visit: Yes Status: Acute Assessment & Plan: -Noted, No home meds for 4 years, does not follow with neurology OP Code(s): Z87.898 - PERSONAL HISTORY OF OTHER SPECIFIED CONDITIONS (3) Hypertension Current Visit: Yes Status: Acute Assessment & Plan: -permissive HTN for now, pending MRI results -Continue to monitor Code(s): I10 - ESSENTIAL (PRIMARY) HYPERTENSION (4) Dizziness Current Visit: Yes Status: Acute Assessment & Plan: -Neurology consulted, recs for MRI/carotid -No focal or lateralizing symptoms -orthostatic vitals -PT/OT -Tele -consider echo -gentle hydration -UA unremarkable -TSH, b12/fol -Medications reviewed, no home meds listed I spent 35 minutes [id number] with the patient on the day of discharge performing discharge exam, discussing hospital stay and discharge instructions with patient and caregivers, preparation of discharge records, prescriptions & referral forms and addressing any questions/concerns the patient had as documented above. - Vitals & Intake/Output Vital Signs: Vital Signs Temperature 97.7 F 08/01/23 11:08 Pulse Rate 55 L 08/01/23 11:08 Respiratory Rate 16 08/01/23 11:08 Blood Pressure 165/87 08/01/23 11:08 O2 Sat by Pulse Oximetry 99 08/01/23 11:08 Intake & Output: Intake & Output 07/30/23 07/31/23 08/01/23 08/02/23 11:59 11:59 11:59 11:59 Intake Total 1913 480 Balance 1913 480 Weight 93.44 kg 92.1 kg - Lab Result Diagrams: 08/01/23 04:25 08/01/23 04:25 Lab Results-Last 24 Hrs: Lab Results-Last 24 Hours 07/31/23 07/31/23 07/31/23 Range/Units 14:25 18:10 18:30 WBC (4.0-10.5) x10^3/uL RBC (4.1-5.6) x10^6/uL Hgb (12.5-18.0) g/dL Hct (42-50) % MCV (78-100) fL MCH (26-32) pg MCHC (32-36) g/dL RDW (11.5-14.0) % Plt Count (150-450) x10^3/uL MPV (7.5-11.0) fL Gran % (36.0-66.0) % Immature Gran % (Auto) (0.00-0.4) % Nucleat RBC Rel Count (0.00-0.1) % Eos # (Auto) (0-0.5) x10^3/uL Immature Gran # (Auto) (0.00-0.03) x10^3u/L Absolute Lymphs (auto) (1.0-4.6) x10^3/uL Absolute Monos (auto) (0.0-1.3) x10^3/uL Absolute Nucleated RBC (0.00-0.01) x10^3u/L Lymphocytes % (24.0-44.0) % Monocytes % (0.0-12.0) % Eosinophils % (0.00-5.0) % Basophils % (0.0-0.4) % Absolute Granulocytes (1.4-6.9) x10^3/uL Basophils # (0-0.4) x10^3/uL Sodium (135-145) mmol/L Potassium (3.5-5.1) mmol/L Chloride (98-107) mmol/L Carbon Dioxide (22-30) mmol/L Anion Gap (5-15) MEQ/L BUN (9-20) mg/dL Creatinine (0.66-1.25) mg/dL Estimated GFR ML/MIN Glucose (74-106) mg/dL Hemoglobin A1c (4.5-6.0) % Calcium (8.4-10.2) mg/dL Magnesium 1.9 (1.6-2.3) mg/dL Total Bilirubin (0.2-1.3) mg/dL AST (17-59) U/L ALT (0-50) U/L Alkaline Phosphatase (38-126) U/L Troponin I < 0.012 < 0.012 (0.000-0.034) ng/mL Serum Total Protein (6.3-8.2) g/dL Albumin (3.5-5.0) g/dL Triglycerides (30-150) mg/dL Cholesterol (50-200) mg/dL LDL Cholesterol (30-100) mg/dL HDL Cholesterol (40-60) mg/dL Heart Disease Risk Ratio TSH 3rd Generation 1.190 (0.47-4.68) mIU/L 08/01/23 08/01/23 08/01/23 Range/Units 04:25 04:25 04:25 WBC 6.1 (4.0-10.5) x10^3/uL RBC 4.63 (4.1-5.6) x10^6/uL Hgb 14.8 (12.5-18.0) g/dL Hct 44.0 (42-50) % MCV 95.0 (78-100) fL MCH 32.0 (26-32) pg MCHC 33.6 (32-36) g/dL RDW 11.9 (11.5-14.0) % Plt Count 184 (150-450) x10^3/uL MPV 9.7 (7.5-11.0) fL Gran % 60.6 (36.0-66.0) % Immature Gran % (Auto) 0.3 (0.00-0.4) % Nucleat RBC Rel Count 0.0 (0.00-0.1) % Eos # (Auto) 0.17 (0-0.5) x10^3/uL Immature Gran # (Auto) 0.02 (0.00-0.03) x10^3u/L Absolute Lymphs (auto) 1.80 (1.0-4.6) x10^3/uL Absolute Monos (auto) 0.35 (0.0-1.3) x10^3/uL Absolute Nucleated RBC 0.00 (0.00-0.01) x10^3u/L Lymphocytes % 29.8 (24.0-44.0) % Monocytes % 5.8 (0.0-12.0) % Eosinophils % 2.8 (0.00-5.0) % Basophils % 0.7 (0.0-0.4) % Absolute Granulocytes 3.67 (1.4-6.9) x10^3/uL Basophils # 0.04 (0-0.4) x10^3/uL Sodium 138 (135-145) mmol/L Potassium 3.9 (3.5-5.1) mmol/L Chloride 107 (98-107) mmol/L Carbon Dioxide 24 (22-30) mmol/L Anion Gap 11.0 (5-15) MEQ/L BUN 22 H (9-20) mg/dL Creatinine 0.97 (0.66-1.25) mg/dL Estimated GFR 89.4 ML/MIN Glucose 116 H (74-106) mg/dL Hemoglobin A1c 4.99 (4.5-6.0) % Calcium 8.5 (8.4-10.2) mg/dL Magnesium (1.6-2.3) mg/dL Total Bilirubin 0.40 (0.2-1.3) mg/dL AST 20 (17-59) U/L ALT 14 (0-50) U/L Alkaline Phosphatase 55 (38-126) U/L Troponin I (0.000-0.034) ng/mL Serum Total Protein 6.3 (6.3-8.2) g/dL Albumin 3.6 (3.5-5.0) g/dL Triglycerides 84 (30-150) mg/dL Cholesterol 169 (50-200) mg/dL LDL Cholesterol 86 (30-100) mg/dL HDL Cholesterol 79 H (40-60) mg/dL Heart Disease Risk Ratio 2.0 TSH 3rd Generation (0.47-4.68) mIU/L - Radiology Exams Ordered Rad Exams-Entire Visit: Radiology Procedures Category Date Time Status CAROTID BILATERAL [US] Routine Exams 08/01/23 08:00 Completed HEAD WITHOUT CONTRAST [CT] Stat Exams 07/31/23 09:48 Completed MRI BRAIN W/O CONTRAST [MRI] Routine Exams 08/01/23 08:00 Completed - Procedures and Test Procedures and Tests throughout Hospitalization: Therapy Orders & Screens 07/31/23 17:30 PT Eval & Treat (MD Order) ONCE Reason for Eval:: dizziness Diagnosis: Dizziness OT Eval and Treat (MD Order) ONCE Comment: Physician Instructions: Reason For Exam: Diagnosis: Dizziness Discharge Exam General Appearance: no apparent distress Neurologic Exam: alert, oriented x 3, cooperative Eye Exam: PERRL Ears, Nose, Throat Exam: normal ENT inspection Neck Exam: normal inspection Respiratory Exam: normal breath sounds, lungs clear Cardiovascular Exam: regular rate/rhythm, normal heart sounds Gastrointestinal/Abdomen Exam: soft, normal bowel sounds Male Genitalia Exam: deferred Rectal Exam: deferred Back Exam: normal inspection Extremity Exam: normal inspection Skin Exam: normal color Final Diagnosis/Problem List - Final Discharge Diagnosis/Problem (1) Mastoiditis Current Visit: Yes Status: Acute Code(s): H70.90 - UNSPECIFIED MASTOIDITIS, UNSPECIFIED EAR (2) History of seizure Current Visit: Yes Status: Acute Code(s): Z87.898 - PERSONAL HISTORY OF OTHER SPECIFIED CONDITIONS (3) Hypertension Current Visit: Yes Status: Acute Code(s): I10 - ESSENTIAL (PRIMARY) HYPERTENSION (4) Dizziness Current Visit: Yes Status: Acute Code(s): R42 - DIZZINESS AND GIDDINESS - Discharge Disposition: Home, Self-Care Condition: Stable Prescriptions: New Amox Tr/Potass Clav. 875 mg [Augmentin 875-125 Tablet] 875 mg PO BID 7 Days #14 tablet Continue Loratadine 10 mg [Claritin 10 mg] 10 mg PO HS Fexofenadine HCl [Amee Allergy] 60 mg PO DAILY Additional Instructions: Follow up with your PCP Dr.Quenton Braun [phone]. Office was closed when I tried to call for appt. Follow up with: DOCTOR,NO FAMILY [Primary Care Provider] -
== END 2023-08-01 14:37 | disposition home or self-care (01) ==
LOC: ED 08:54 → MED SURG 16:28
PROVIDERS: ADMIT Internal Medicine; ATTEND Internal Medicine
DX: H70.91 Unspecified mastoiditis, right ear (principal); Z87.898 Personal history of other specified conditions; I10 Essential (primary) hypertension; R42 Dizziness and giddiness; M54.2 Cervicalgia; Z79.899 Other long term (current) drug therapy; Z20.828 Contact with and (suspected) exposure to other viral communicable diseases
CPT/HCPCS: 36000; 36415; 70450; 70551; 80053; 80061; 80143; 80179; 80307; 81001; 82077; 83036; 83721; 83735; 84443; 84484; 85025; 93005; 93041; 93268; 93880; 94760; 96365; 99285; Q3014; A9270-GY; G0378